=== PATIENT | male | born 1975 | race Two or more races ===

== ENCOUNTER 2019-07-09 08:55 | Emergency (ER) | payer MEDICAID ==
[~2019-07-09] VITALS: Ht 162.6 cm; Wt 88.0 kg
[2019-07-09] MEDS ORDERED: TAM75C PO (09:32)
[2019-07-09 09:46] VITALS: BP 122/71
== END 2019-07-09 09:48 | disposition home or self-care (01) ==
LOC: ER 08:55
DX: J06.9 Acute upper respiratory infection, unspecified (principal); Z20.828 Contact with and (suspected) exposure to other viral communicable diseases; Z79.2 Long term (current) use of antibiotics
CPT/HCPCS: 99283